=== PATIENT | female | born 1985 | race African-American/Black ===

== ENCOUNTER → 2017-02-20 | Outpatient (CLI) | payer BC ==
[~2017-02-20] MED LIST: CARI350T PO; IBUP-1542 PO; IBUP800T25 PO
--- NOTE | 2017-02-20 17:21 | RADRPT ---
PROCEDURE: US Pelvis. CLINICAL INDICATION: Pelvic pain. TECHNIQUE: The pelvis was evaluated with transabdominal and transvaginal sonography in the axial a nd sagittal planes. COMPARISON: No prior study is available for comparison. FINDINGS: Uterus: 7.2 x 4.2 x 4.5 cm. Endometrium: 7.1 mm. Right ovary: 4.5 x 1.4 x 2.3 cm. Left ovary: 3.1 x 1.4 x 2.3 cm. Uterine masses: None. The uterus is retroverted. Ovarian masses: None. Color Doppler and pulsed Doppler sonography demonstrate normal flow to the ova bowen. Other pelvic masses: None. Free fluid: None. IMPRESSION: 1. Retroverted uterus. 2. Otherwise unremarkable pelvic ultrasound. RPTAT: QQ .Sae Freeman MD, Date Time Electronically viewed and signed by .Sae Freeman MD, MD on 02/20/2017 17:20 .R/
== END | disposition home or self-care (01) ==
LOC: U/S 14:40
PROVIDERS: ATTEND Nurse Practitioner Obstetrics & Gynecology
DX: R10.2 Pelvic and perineal pain (principal)
CPT/HCPCS: 76830; 76856